=== PATIENT | male | born 1970 | race Caucasian/White ===

== ENCOUNTER 2023-04-16 07:51 | Day surgery (SDC) | payer BC ==
[2023-04-15 09:54] VITALS: BMI 23.7
[~2023-04-16 07:51] MED LIST: LACTATED RINGERS 1,000 ML IV SCH
[2023-04-16 08:37] VITALS: TEMP 98.3
[2023-04-16] MEDS ORDERED: PROPOFOL 10 MG/ML 20 ML VIAL IV ONE (08:37)
[2023-04-16] MEDS ORDERED: LIDOCAINE 1% INJ 10MG/ML (20 ML MDV) ONE (08:37)
--- NOTE | 2023-04-16 08:38 | P.GSHP ---
History of Present Illness H&P Date: 04/16/23 Chief Complaint: Screening colonoscopy This 52-year-old male presents today for screening colonoscopy patient denies a significant GI complaints. Past Medical History Past Medical History: No Reported History History of Any Multi-Drug Resistant Organisms: None Reported Past Surgical History: Appendectomy Additional Past Surgical History / Comment(s): JAW SX Past Anesthesia/Blood Transfusion Reactions: No Reported Reaction Smoking Status: Never smoker - Past Family History Mother Family Medical History: No Reported History Medications and Allergies Home Medications Medication Instructions Recorded Confirmed Type No Known Home Medications 04/15/23 04/15/23 History Allergies Allergy/AdvReac Type Severity Reaction Status Date / Time No Known Allergies Allergy Verified 04/16/23 08:08 Surgical - Exam Vital Signs Temp Pulse Resp BP Pulse Ox 98.3 F 83 14 128/94 99 04/16/23 08:27 04/16/23 08:27 04/16/23 08:27 04/16/23 08:27 04/16/23 08:27 - General well developed, well nourished, no distress - Eyes PERRL - ENT normal pinna - Neck no masses - Respiratory normal expansion - Cardiovascular Rhythm: regular - Abdomen Abdomen: soft, non tender Assessment and Plan Assessment: We'll perform screening colonoscopy.
--- NOTE | 2023-04-16 08:59 | P.OP ---
Date of Procedure: 04/16/23 Preoperative Diagnosis: Screening colonoscopy Postoperative Diagnosis: Normal colon Procedure(s) Performed: Colonoscopy Anesthesia: MAC Surgeon: Dmitry Jules Pathology: none sent Condition: stable Disposition: PACU Description of Procedure: PROCEDURE: The patient was placed on the endoscopy table in the lateral position. Digital rectal examination was performed which revealed no abnormalities. The prostate was symmetrical without nodules. Flexible colonoscope was then placed in the patient's anus and passed throughout the entire colon. The ileocecal valve was visualized. The cecum, ascending, transverse, descending and sigmoid colon were normal. The rectum was normal as well. There were no masses, polyps or diverticula noted in the entire colon. SUMMARY OF FINDINGS: Normal colonoscopy.
[2023-04-16 09:49] VITALS: BP 129/88; PULSE 78; RESP 16
== END 2023-04-16 10:09 | disposition home or self-care (01) ==
LOC: ORWHC2ENDO 07:51
PROVIDERS: ATTEND Surgery
DX: Z12.11 Encounter for screening for malignant neoplasm of colon (principal); Z90.49 Acquired absence of other specified parts of digestive tract
CPT/HCPCS: 45378; J2001; J2704

== ENCOUNTER → 2023-09-09 | Outpatient (CLI) | payer BC ==
--- NOTE | 2023-09-11 14:32 | CT ---
EXAMINATION TYPE: CT urogram wo/w con DATE OF EXAM: 09/09/2023 COMPARISON: INDICATION: Abnormal urine cytology. DLP: 1379.1 mGycm, Automated exposure control for dose reduction was used. CONTRAST: 100 mL of Isovue 300. Study performed TECHNIQUE: Axial images were obtained from above the diaphragm to the pubic rami in the axial plane a t 5 mm thick sections. Reconstructed images are reviewed on the computer in the coronal plane. FINDINGS: Limited CT sections are obtained the lung bases. There is an infiltrate or consolidation at the righ t base. Correlate for pneumonia. Follow-up is recommended. Underlying nodules are not excluded.. CT ABDOMEN: Liver: Normal Spleen: Normal Pancreas: Normal Adrenal glands: The adrenal glands are normal. Gallbladder: Normal Kidneys: No masses are evident. No hydronephrosis is present. No cysts are present. Early and grace yed images were obtained through the kidneys, which remain unremarkable. There is some mild inferior malpositioning of the right kidney. Aorta: Normal Inferior vena cava: Normal. CT PELVIS: Loops of bowel within the abdomen and pelvis are normal. Studies without oral contrast limiting b owel evaluation. Appendix: Not identified. No dilated tubular structure or inflammatory changes evident. Urinary bladder: Normal. Genitourinary structures: Prostate appears unremarkable Osseous structures: No suspicious lytic or sclerotic lesions. 3-D reconstruction images through the urinary collecting system are performed on a separate computer by the technologist. No intraluminal filling defects are evident. Ureters follow a normal caliber cou rse and contour to the urinary bladder. Urinary bladder fills normally without intraluminal or extrar enal defects. No hydronephrosis is evident. No hydroureter is evident. Renal calyces infundibula and renal pelves appear normal. IMPRESSION: 1. No suspicious renal or ureteral abnormality
== END | disposition home or self-care (01) ==
LOC: RADCTMAIN 08:13
PROVIDERS: ATTEND Internal Medicine
DX: R82.89 Other abnormal findings on cytological and histological examination of urine (principal)
CPT/HCPCS: 74178; 74400; Q9967